=== PATIENT | female | born 1955 | race Caucasian/White ===

== ENCOUNTER 2017-08-22 21:15 | Emergency (ER) | payer MEDICAID, OTHER ==
[2017-08-22 21:20] VITALS: BP 165/97
[2017-08-22] MEDS ORDERED: Clindamycin HCl 150 MG Cap PO ONE (21:29)
[2017-08-22] MEDS ORDERED: Acetaminophen/HYDROcodone 325-10 MG Tab PO ONE (21:29)
--- NOTE | 2017-08-22 21:34 | EDM.PDOC ---
ED HPI GENERAL MEDICAL PROBLEM - General Chief Complaint: ENT Problem Stated Complaint: PAIN IN MOUTH/EAR, [id number] Time Seen by Provider: 08/22/17 21:31 Source of Information: Reports: Patient History Limitations: Reports: No Limitations - History of Present Illness INITIAL COMMENTS - FREE TEXT/NARRATIVE: onset right face-ear pain this am Right Lower Gums Pain Score (Numeric/FACES): 8 - Related Data Allergies Allergy/AdvReac Type Severity Reaction Status Date / Time No Known Allergies Allergy Verified 08/22/17 21:20 Home Meds: Home Meds Lisinopril/Hydrochlorothiazide [Lisinopril-Hctz 20-12.5 mg Tab] 1 tab PO DAILY 08/22/17 [History] Past Medical History Cardiovascular History: Reports: Hypertension - Past Surgical History GI Surgical History: Reports: Cholecystectomy Female Surgical History: Reports: Section Social & Family History - Tobacco Use Smoking Status *Q: Current Every Day Smoker Years of Tobacco use: 30 Packs/Tins Daily: 0.5 Second Hand Smoke Exposure: Yes - Recreational Drug Use Recreational Drug Use: No ED ROS ENT - Review of Systems Review Of Systems: ROS reveals no pertinent complaints other than HPI. ED EXAM, ENT - Physical Exam Exam: See Below Exam Limited By: No Limitations General Appearance: Alert, WD/WN, Mild Distress, Other (pain) Ears: Hearing Grossly Normal, Normal TMs Nose: Normal Inspection Mouth/Throat: Dental Abcess, Dental Pain, Dental Tenderness, Other (right lower molar) Head: Atraumatic Neck: Non-Tender, Full Range of Motion Respiratory/Chest: No Respiratory Distress Cardiovascular: Regular Rate, Rhythm GI/Abdominal: Soft, Non-Tender Neurological: Alert, Oriented, Normal Cognition, Normal Gait, No Motor/Sensory Deficits Psychiatric: Tearful Skin: Warm, Dry, Normal Color Lymphatic: No Adenopathy Course - Vital Signs Last Recorded V/S: Last Vital Signs Temp 36.6 C 08/22/17 21:17 Pulse 90 08/22/17 21:17 Resp 18 08/22/17 21:17 BP 165/97 H 08/22/17 21:17 Pulse Ox 98 08/22/17 21:17 - Orders/Labs/Meds Meds: Medications Discontinued Medications Generic Name Dose Route Start Last Admin Trade Name Freq PRN Reason Stop Dose Admin Hydrocodone Bitart/Acetaminophen 1 tab 08/22/17 21:29 [place] 325-10 Mg PO 08/22/17 21:30 ONETIME ONE Clindamycin HCl 300 mg 08/22/17 21:29 Cleocin PO 08/22/17 21:30 ONETIME ONE Departure - Departure Time of Disposition: 21:32 Disposition: Home, Self-Care 01 Condition: Good Clinical Impression: Dental abscess, Dental caries - Discharge Information Instructions: Dental Abscess, [id number] Additional Instructions: 1) avoid solid foods 2) see Dentist Friday rx given; clindamycin 150mg qid x 40 vicodin 5/325mg bid prn x 12
== END 2017-08-22 21:39 | disposition home or self-care (01) ==
LOC: DL.ED 21:15
DX: K04.7 Periapical abscess without sinus (principal); K02.9 Dental caries, unspecified; Z79.899 Other long term (current) drug therapy; F17.210 Nicotine dependence, cigarettes, uncomplicated
CPT/HCPCS: 99282; A9270

== ENCOUNTER 2018-12-01 05:33 | Day surgery (SDC) | payer OTHER ==
[~2018-12-01 05:33] MED LIST: Dextrose 5%-0.45% NaCl 1,000 ML IV SCH; Sodium Chloride 0.9% 10 ML Syringe FLUSH PRN
[2018-12-01] MEDS ORDERED: Midazolam 1 MG/ML 2 ML SDV IV ONE ×7 (05:34→06:40)
[2018-12-01] MEDS ORDERED: fentaNYL 100 MCG/2 ML SDV IV ONE ×3 (05:34→06:27)
[2018-12-01] MEDS ORDERED: Midazolam 1 MG/ML 2 ML SDV ONE (06:15)
[2018-12-01] MEDS ORDERED: fentaNYL 100 MCG/2 ML SDV ONE (06:16)
--- NOTE | 2018-12-01 07:26 | OR ---
DATE: 12/01/2018 PROCEDURE PERFORMED: Total colonoscopy and multiple cold snare polypectomies. INSTRUMENT USED: PCF-H180 AL Olympus video colonoscope. PREMEDICATIONS: Fentanyl 100 mcg intravenous, Versed 4 mg intravenous. Nasal O2 cannula. The procedure was done under pulse oximetry, BP recording, and radiation monitor. INDICATIONS: Screening colonoscopy examination is done for detection of any polypoid lesions and removal, endoscopic hemostasis therapy if needed. Initial rectal exam was unremarkable. Rigid anoscopy was normal. DESCRIPTION OF PROCEDURE: The colonoscope was passed with ease. Numerous scattered diverticula were noted in the distal left colon along with deformity. The scope was passed with ease up to the ileocecal area. Photographs were taken of the normal-appearing cecum, identified by double-bulged ileocecal folds. No bleeding was noted from any of the visualized areas at the commencement of the examination. There was some amount of fecal material that had to be aspirated. Orting scale +2. Multiple diminutive, benign-appearing rectal polyps were noted, cold snare polypectomy was done of the largest 1 and sent for histopathology. In the proximal descending colon, another diminutive polyp was noted. Photograph was taken. Cold snare polypectomy was done, the tissue was retrieved and sent for histopathology. No stricture. No vascular ectasia. No large or isolated ulcerations seen. No evidence of diffuse inflammatory bowel disease in the form of friability, contact bleeding, or ulcerations. Probing the proximal sides of folds and flexures, using adequate distention and clearing up the stool material, withdrawal of the scope was made, [id number] time over 6 minutes. No bleeding was noted from any of the visualized areas at the completion of examination. IMPRESSION: 1. Multiple diminutive polyps. 2. Diverticulosis. The patient tolerated the procedure well. [facility] /[id number]
[2018-12-01 09:52] VITALS: BP 110/85
== END 2018-12-01 08:54 | disposition home or self-care (01) ==
LOC: DL.ENDO 05:33
PROVIDERS: ATTEND Internal Medicine Gastroenterology
DX: Z12.11 Encounter for screening for malignant neoplasm of colon (principal); D12.4 Benign neoplasm of descending colon; K62.1 Rectal polyp; K57.30 Diverticulosis of large intestine without perforation or abscess without bleeding; I10 Essential (primary) hypertension; E66.09 Other obesity due to excess calories; F17.210 Nicotine dependence, cigarettes, uncomplicated; E78.5 Hyperlipidemia, unspecified
CPT/HCPCS: 45385; J2250; J3010; J7042

== ENCOUNTER 2018-12-04 17:56 | Emergency (ER) | payer OTHER ==
[2018-12-04] MEDS ORDERED: Sodium Chloride 0.9% 10 ML Syringe FLUSH PRN (18:12)
[2018-12-04] MEDS ORDERED: Sodium Chloride 0.9% 1,000 ML IV ONE ×2 (18:14→18:48)
[2018-12-04 18:30] VITALS: BP 99/72
--- NOTE | 2018-12-04 18:33 | CR ---
Clinical history: 63-year-old female chest pain. Interpretation: No acute new cardiopulmonary abnormality since 15 September 2012 comparison film. Normal cardiac silhouette without cephalization of vascular flow, signs of alveolar edema or dependent pleural fluid accumulation. (external monitoring and evaluation advisor leads) No new lung mass, hilar lymphadenopathy or focal lobar pneumonia. No atelectasis/collapse. No pneumothorax. CONCLUSION: Negative exam.
[2018-12-04 18:43] LABS: ANION GAP 16.4; CHLORIDE,CL 94 mmol/L (101-111); SODIUM,NA 130 mmol/L (135-145)
[2018-12-04] MEDS ORDERED: Iopamidol 755 Mg/ML 100 ML Bottle IVPUSH ONE (18:45)
--- NOTE | 2018-12-04 18:54 | CT ---
Clinical history: 63-year-old female smoker with hypertension complaining of lightheadedness and near syncopal episode. Scan technique: Volume acquisition of data emergency unenhanced CT scan of the head and brain obtained while the patient was lying supine on the Siemens multi slice scanner [place], [place]. All data archived in the PACS system for storage, reformatting axial/sagittal/coronal planes and study. No previous studies immediately available for comparison. Interpretation: Negative exam. 1. Uniformly thick bony calvarium and symmetric clear pneumatization of the paranasal/mastoid sinuses. 2. No sign of underlying brain contusion or epidural/subdural hematoma. 3. No supratentorial or posterior fossa mass lesion. Symmetric age-appropriate atrophy. Underlying mirror-image normal ventricles. 4. No focal areas of ischemia, territorial infarct or signs of encephalomalacia. 5. No sign of acute intracerebral/intraventricular/subarachnoid bleed. 6. Cerebellum and brainstem unremarkable.
--- NOTE | 2018-12-04 18:55 | EDM.PDOC ---
"Scribed by Ashlie Branham 12/04/18 2298 for Amanda Laguerre MD ED HPI GENERAL MEDICAL PROBLEM - General Source of Information: Reports: Patient, EMS, EMS Notes Reviewed, RN, RN Notes Reviewed History Limitations: Reports: No Limitations - History of Present Illness Onset: Today Duration: Minutes: Location: Reports: Generalized Severity: Severe Improves with: Reports: None Worsens with: Reports: None Associated Symptoms: Reports: No Other Symptoms <Amanda Laguerre - Last Filed: 12/04/18 18:52> <Linda Burns - Last Filed: 12/04/18 23:04> - General Chief Complaint: Syncope Stated Complaint: SYNCOPE Time Seen by Provider: 12/04/18 17:57 - History of Present Illness INITIAL COMMENTS - FREE TEXT/NARRATIVE: Patient presents to ER by [facility]. Patient was at work she became lightheaded, lowered herself to the ground and had a syncopal episode. Denies chest pain, shortness of breath, palpitations, edema, nausea, vomiting or headache. States that she has not been ill recently. No prior history of syncope. (Ashlie Branham) Patient presents to ER by [facility]. Patient was at work she became lightheaded, lowered herself to the ground and had a syncopal episode. Denies chest pain, shortness of breath, palpitations, edema, nausea, vomiting or headache. States that she has not been ill recently. No prior history of syncope. (Amanda Laguerre) - Related Data Allergies Allergy/AdvReac Type Severity Reaction Status Date / Time No Known Allergies Allergy Verified 12/04/18 18:24 Home Meds: Home Meds Lisinopril/Hydrochlorothiazide [Lisinopril-Hctz 20-12.5 mg Tab] 1 tab PO DAILY 08/22/17 [History] Aspirin [Halfprin] 81 mg PO DAILY 11/30/18 [History] Ibuprofen 200 mg PO ASDIRECTED 11/30/18 [History] atorvaSTATin [Lipitor] 20 mg PO DAILY 11/30/18 [History] Past Medical History HEENT History: Reports: Impaired Vision Other HEENT History: WEARS CORRECTIVES LENS Cardiovascular History: Reports: High Cholesterol, Hypertension Respiratory History: Reports: None Gastrointestinal History: Reports: None Genitourinary History: Reports: None 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: Musculoskeletal History: Reports: None Neurological History: Reports: None Psychiatric History: Reports: None Endocrine/Metabolic History: Reports: Obesity/BMI 30+ Hematologic History: Reports: Blood Transfusion(s) Immunologic History: Reports: None Oncologic (Cancer) History: Reports: None Dermatologic History: Reports: None - Infectious Disease History Infectious Disease History: Reports: Chicken Pox - Past Surgical History Head Surgeries/Procedures: Reports: None HEENT Surgical History: Reports: None Cardiovascular Surgical History: Reports: None Respiratory Surgical History: Reports: None GI Surgical History: Reports: Appendectomy, Cholecystectomy, Colonoscopy Female Surgical History: Reports: Section, Tubal Ligation Endocrine Surgical History: Reports: None Neurological Surgical History: Reports: None Musculoskeletal Surgical History: Reports: None Oncologic Surgical History: Reports: None Dermatological Surgical History: Reports: None <Amanda Laguerre - Last Filed: 12/04/18 18:52> Social & Family History - Caffeine Use Caffeine Use: Reports: Coffee Other Caffeine Use: 1-2 CUPS OF COFFEE DAILY <Amanda Laguerre - Last Filed: 12/04/18 18:52> ED ROS GENERAL - Review of Systems Review Of Systems: ROS reveals no pertinent complaints other than HPI. <Amanda Laguerre - Last Filed: 12/04/18 18:52> - Physical Exam Exam: See Below Exam Limited By: No Limitations General Appearance: Alert, WD/WN, No Apparent Distress Eye Exam: Bilateral Eye: EOMI, Normal Inspection, PERRL Ears: Normal External Exam, Normal Canal, Hearing Grossly Normal, Normal TMs Nose: Normal Inspection, Normal Mucosa, No Blood Throat/Mouth: Normal Inspection, Normal Lips, Normal Teeth, Normal Gums, Normal Oropharynx, Normal Voice, No Airway Compromise Head Exam: Atraumatic, Normocephalic Neck: Normal Inspection, Supple, Non-Tender, Full Range of Motion Respiratory/Chest: No Respiratory Distress, Lungs Clear, Normal Breath Sounds, No Accessory Muscle Use, Chest Non-Tender Cardiovascular: Normal Peripheral Pulses, Regular Rate, Rhythm, No Edema, No Gallop, No JVD, No Murmur, No Rub GI/Abdominal: Normal Bowel Sounds, Soft, Non-Tender, No Organomegaly, No Distention, No Abnormal Bruit, No Mass (Female) Exam: Deferred Rectal (Female) Exam: Deferred Neuro Exam (Abbreviated): Alert, Oriented, CN II-XII Intact, Normal Cognition, Normal Gait, Normal Reflexes, No Motor/Sensory Deficits Back Exam: Normal Inspection, Full Range of Motion, NT Extremities: Normal Inspection, Normal Range of Motion, Non-Tender, No Pedal Edema, Normal Capillary Refill Psychiatric: Normal Affect, Normal Mood Skin Exam: Warm, Dry, Intact, Normal Color, No Rash <Amanda Laguerre - Last Filed: 12/04/18 18:52> EKG INTERPRETATION EKG Date: 12/04/18 Time: 18:02 Rhythm: Other (sinus rhythm) Rate (Beats/Min): 83 [place]: Normal P-Wave: Present QRS: Normal ST-T: Normal QT: Normal <Amanda Laguerre - Last Filed: 12/04/18 18:52> Course <Amanda Laguerre - Last Filed: 12/04/18 18:52> <Linda Burns - Last Filed: 12/04/18 23:04> - Vital Signs Last Recorded V/S: Last Vital Signs Temp 98.1 F 12/04/18 18:27 Pulse 103 H 12/04/18 18:27 Resp 12 12/04/18 18:27 BP 99/72 12/04/18 18:27 Pulse Ox 100 12/04/18 18:27 Orthostatic Blood Pressure [ 115/71 Supine] Orthostatic Blood Pressure [ 119/80 Standing] Orthostatic Blood Pressure [ 128/79 Sitting] - Orders/Labs/Meds Orders: Active Orders 24 hr Category Date Time Status Blood Glucose Check, Bedside [RC] ONETIME Care 12/04/18 18:13 Active EKG 12 Lead [EKG Documentation Completion] [RC] STAT Care 12/04/18 18:13 Active Orthostatic Vital Signs [RC] ASDIRECTED Care 12/04/18 18:14 Active Peripheral IV Care [RC] . DIRECTED Care 12/04/18 18:14 Active CULTURE URINE [RM] Stat Lab 12/04/18 20:16 Received Peripheral IV Insertion Adult [OM.PC] Stat Oth 12/04/18 18:13 Ordered Labs: Laboratory Tests 12/04/18 12/04/18 12/04/18 Range/Units 18:15 18:15 18:15 WBC 10.0 (5.0-10.0) 10^3/uL RBC 4.19 L (4.2-5.4) 10^6/uL Hgb 12.8 (12.0-16.0) g/dL Hct 37.0 (37.0-47.0) % MCV 88.3 (80-100) fL MCH 30.5 (27.0-34.0) pg MCHC 34.6 (33.0-35.0) g/dL Plt Count 264 (150-450) 10^3/uL Neut % (Auto) 75.0 (42.2-75.2) % Lymph % (Auto) 16.9 L (20.5-50.1) % [place] % (Auto) 7.4 (2-8) % Eos % (Auto) 0.4 L (1.0-3.0) % Baso % (Auto) 0.3 (0.0-1.0) % D-Dimer, Quantitative 4430 H (0-400) ng/mL Sodium 130 L (135-145) mmol/L Potassium 4.4 (3.6-5.0) mmol/L Chloride 94 L (101-111) mmol/L Carbon Dioxide 24.0 (21.0-31.0) mmol/L Anion Gap 16.4 BUN 25 H (7-18) mg/dL Creatinine 1.3 (0.6-1.3) mg/dL Est Cr Clr Drug Dosing TNP Estimated GFR (MDRD) 42 BUN/Creatinine Ratio 19.23 Glucose 158 H (74-105) mg/dL POC Glucose (70-105) mg/dl Calcium 9.8 (8.4-10.2) mg/dl Total Bilirubin 0.8 (0.2-1.0) mg/dL AST 23 (10-42) IU/L ALT 26 (10-60) IU/L Alkaline Phosphatase 65 (42-121) IU/L Creatine Kinase (26-174) IU/L Creatine Kinase Index (0-2.4) % CK-MB (CK-2) (0.4-4.7) ng/mL Troponin I < 0.02 (0.00-0.02) ng/ml Total Protein 7.7 (6.7-8.2) g/dl Albumin 4.5 (3.2-5.5) g/dl Globulin 3.2 Albumin/Globulin Ratio 1.41 Urine Color (YELLOW) Urine Appearance (CLEAR) Urine pH (5.0-9.0) Ur Specific [place] (1.005-1.030) Urine Protein (NEGATIVE) Urine Glucose (UA) (NEGATIVE) Urine Ketones (NEGATIVE) Urine Occult Blood (NEGATIVE) Urine Nitrite (NEGATIVE) Urine Bilirubin (NEGATIVE) Urine Urobilinogen (0.2-1.0) mg/dL Ur Leukocyte Esterase (NEGATIVE) Urine RBC /HPF Urine WBC (0-5/HPF) /HPF Ur Epithelial Cells /HPF Urine Bacteria (0-FEW/HPF) /HPF Hyaline Casts /LPF Urine Yeast (0/HPF) /HPF 12/04/18 12/04/18 12/04/18 Range/Units 18:15 19:15 20:16 WBC (5.0-10.0) 10^3/uL RBC (4.2-5.4) 10^6/uL Hgb (12.0-16.0) g/dL Hct (37.0-47.0) % MCV (80-100) fL MCH (27.0-34.0) pg MCHC (33.0-35.0) g/dL Plt Count (150-450) 10^3/uL Neut % (Auto) (42.2-75.2) % Lymph % (Auto) (20.5-50.1) % [place] % (Auto) (2-8) % Eos % (Auto) (1.0-3.0) % Baso % (Auto) (0.0-1.0) % D-Dimer, Quantitative (0-400) ng/mL Sodium (135-145) mmol/L Potassium (3.6-5.0) mmol/L Chloride (101-111) mmol/L Carbon Dioxide (21.0-31.0) mmol/L Anion Gap BUN (7-18) mg/dL Creatinine (0.6-1.3) mg/dL Est Cr Clr Drug Dosing Estimated GFR (MDRD) BUN/Creatinine Ratio Glucose (74-105) mg/dL POC Glucose 104 (70-105) mg/dl Calcium (8.4-10.2) mg/dl Total Bilirubin (0.2-1.0) mg/dL AST (10-42) IU/L ALT (10-60) IU/L Alkaline Phosphatase (42-121) IU/L Creatine Kinase 49 (26-174) IU/L Creatine Kinase Index 2.0 (0-2.4) % CK-MB (CK-2) 1.00 (0.4-4.7) ng/mL Troponin I (0.00-0.02) ng/ml Total Protein (6.7-8.2) g/dl Albumin (3.2-5.5) g/dl Globulin Albumin/Globulin Ratio Urine Color Yellow (YELLOW) Urine Appearance Slightly cloudy (CLEAR) Urine pH 5.5 (5.0-9.0) Ur Specific [place] <= 1.005 (1.005-1.030) Urine Protein Negative (NEGATIVE) Urine Glucose (UA) Negative (NEGATIVE) Urine Ketones Negative (NEGATIVE) Urine Occult Blood Trace-intact H (NEGATIVE) Urine Nitrite Negative (NEGATIVE) Urine Bilirubin Negative (NEGATIVE) Urine Urobilinogen 0.2 (0.2-1.0) mg/dL Ur Leukocyte Esterase Small H (NEGATIVE) Urine RBC 0-5 /HPF Urine WBC 10-20 H (0-5/HPF) /HPF Ur Epithelial Cells Moderate H /HPF Urine Bacteria Moderate H (0-FEW/HPF) /HPF Hyaline Casts Moderate H /LPF Urine Yeast Few H (0/HPF) /HPF Meds: Medications Discontinued Medications Generic Name Dose Route Start Last Admin Trade Name Freq PRN Reason Stop Dose Admin Ciprofloxacin 500 mg 12/04/18 20:33 12/04/18 20:40 Ciprofloxacin Hcl PO 12/04/18 20:34 500 mg ONETIME ONE Administration Sodium Chloride 1,000 mls @ 999 mls/hr 12/04/18 18:14 12/04/18 18:52 Normal Saline IV 12/04/18 19:14 999 mls/hr .BOLUS ONE Administration Sodium Chloride 1,000 mls @ 999 mls/hr 12/04/18 18:48 12/04/18 19:38 Normal Saline IV 12/04/18 19:48 999 mls/hr .BOLUS ONE Administration Iopamidol 100 ml 12/04/18 18:45 12/04/18 19:13 [id number] (76%) IVPUSH 01/11/19 18:46 100 ml ONETIME ONE Administration Sodium Chloride 10 ml 12/04/18 18:12 12/04/18 20:00 Saline Flush FLUSH 10 ml ASDIRECTED PRN Administration Keep Vein Open - Radiology Interpretation Free Text/Narrative:: Chest x-ray: Normal See rad report. (Ashlie Branham) Chest x-ray: Normal See rad report. (Amanda Laguerre) e [place] - [facility] Final Radiology Report Call: [phone] assistance Online chat: [email or web address] Name: KIKA LIU Age: 63Years F Date: 12/04/2018 SSN: -- : 1955 Study: CT CHEST W Requesting Physician: AMANDA LAGUERRE Images: [id number] Addl Studies: Provided Clinical History: Contrast: With Contrast Medium: [id number] Contrast Amount: 74 mL Contrast Method: rac Page 1 of 2 EXAM: CT Chest With Contrast EXAM DATE/TIME: 12/04/2018 7:28 PM CLINICAL HISTORY: 63 years old, female; Signs and symptoms; Other: Pe study--ddimer 4430, syncope TECHNIQUE: Axial computed tomography images of the chest with intravenous contrast. All CT scans at this facility use at least one of these dose optimization techniques: automated exposure control; mA and/or kV adjustment per patient size (includes targeted exams where dose is matched to clinical indication); or iterative reconstruction. Coronal and sagittal reformatted images were created and reviewed. CONTRAST: 74 ml of [id number] administered intravenously. COMPARISON: CT Chest wo Cont 03/28/2015 10:59 AM FINDINGS: Lungs: The lungs are hyperinflated, consistent with underlying small airways disease. Pleural space: Normal. No pneumothorax. No pleural effusion. Heart: Normal. No cardiomegaly. No pericardial effusion. Pulmonary arteries: No evidence of pulmonary embolism. Aorta: The vasculature demonstrates diffuse mild atherosclerotic calcification. Lymph nodes: Unremarkable. No enlarged lymph nodes. Bones/joints: The thoracic spine demonstrates mild degenerative changes at multiple levels. KIKA LIU | Final Radiology Report CONFIDENTIALITY STATEMENT This report is intended only for use by the referring physician, and only in accordance with law. If you received this in error, call [phone]. Page 2 of 2 Soft tissues: Unremarkable. IMPRESSION: 1. No evidence of pulmonary embolism. 2. The lungs are hyperinflated, consistent with underlying small airways disease. Atelectatic changes noted within the lung bases, greater on the left. Thank you for allowing us to participate in the care of your patient. Dictated and Authenticated by: Aldo Philip DO 12/04/2018 8:17 PM Central Time ([place] & [place]) Head CT without contrast unremarkabnle: See Rad report (Linda Burns) - Re-Assessments/Exams Free Text/Narrative Re-Assessment/Exam: 12/04/18 19:00 Care of pt transferred to Linda ESTRADA at shift change with PE study pending. (Amanda Laguerre) Free Text/Narrative Re-Assessment/Exam: 12/04/18 [address] Laguerre. Awaiting CT chest and results. Patient resting visiting with family. No acute respiratory difficulty. Patient reports has not eaten today. [address] results reviewed with patient. Has been up to BR, gait steady and denied any dizziness, recheck of orthostatic BP, improved. instructed to return if any worsening or symptoms or difficutly breathing. (Linda Burns) Departure <Amanda Laguerre - Last Filed: 12/04/18 18:52> - Departure Time of Disposition: 20:31 Condition: Good - Discharge Information *PRESCRIPTION DRUG MONITORING PROGRAM REVIEWED*: No <Linda Burns - Last Filed: 12/04/18 23:04> - Departure Disposition: Home, Self-Care 01 Clinical Impression: Syncope Qualifiers: Syncope type: unspecified Qualified Code(s): R55 - Syncope and collapse UTI (urinary tract infection) Qualifiers: Urinary tract infection type: acute cystitis Hematuria presence: with hematuria Qualified Code(s): N30.01 - Acute cystitis with hematuria - Discharge Information Instructions: Urinary Tract Infection, Adult, Syncope, [id number] Referrals: PCP,None [Primary Care Provider] - Forms: ED Department Discharge Additional Instructions: cipro 500mg one twice daily for 5 days increase fluid intake change positions slowly light activity clinic follow up nest week I have read and agree with the documentation that has been completed regarding this visit. By signing this record, I attest that the documentation was completed in my physical presence and is an accurate record of the encounter."
[2018-12-04] MEDS ORDERED: Ciprofloxacin 500 MG Tab PO ONE (20:33)
== END 2018-12-04 20:48 | disposition home or self-care (01) ==
LOC: DL.ED 17:56
DX: R55 Syncope and collapse (principal); N30.01 Acute cystitis with hematuria; E78.00 Pure hypercholesterolemia, unspecified; I10 Essential (primary) hypertension; Z79.899 Other long term (current) drug therapy
CPT/HCPCS: 36415; 70450; 71045; 71260; 80053; 81001; 82550; 82553; 82962; 84484; 85025; 85379; 87086; 93005; 96360; 99285; A9270-GY; J7030; Q9967

== ENCOUNTER 2022-02-14 18:08 | Emergency (ER) | payer MEDICAID, OTHER ==
[2022-02-14] MEDS ORDERED: Clindamycin HCl 150 MG Cap PO ONE (18:09)
[2022-02-14] MEDS ORDERED: Clindamycin HCl 150 MG Cap ONE (19:24)
[2022-02-14 19:35] VITALS: BP 124/90; PULSE 118
== END 2022-02-14 19:31 | disposition home or self-care (01) ==
LOC: DL.ED 18:08
DX: K04.7 Periapical abscess without sinus (principal); K02.9 Dental caries, unspecified; E78.00 Pure hypercholesterolemia, unspecified; I10 Essential (primary) hypertension; E66.9 Obesity, unspecified; Z68.25 Body mass index [BMI] 25.0-25.9, adult; Z79.899 Other long term (current) drug therapy; Z79.82 Long term (current) use of aspirin; Z72.0 Tobacco use
CPT/HCPCS: 99282; 99283; A9270-GY

== ENCOUNTER 2022-07-21 16:04 | Emergency (ER) | payer MEDICARE, MEDICAID ==
[2022-07-21] MEDS ORDERED: Cyclobenzaprine 10 MG Tab PO ONE (16:05)
[2022-07-21] MEDS ORDERED: Ketorolac 10 MG Tab PO ONE (16:05)
[2022-07-21] MEDS ORDERED: Ketorolac 30 MG/ML SDV IM ONE (16:53)
[2022-07-21] MEDS ORDERED: Orphenadrine 60 MG/2 ML Inj IM ONE (16:53)
[2022-07-21 18:14] VITALS: BP 145/94; PULSE 97
[2022-07-21] MEDS ORDERED: Ketorolac 10 MG Tab ONE (18:47)
[2022-07-21] MEDS ORDERED: Cyclobenzaprine 10 MG Tab ONE (18:48)
== END 2022-07-21 18:57 | disposition home or self-care (01) ==
LOC: DL.ED 16:04
DX: M48.061 Spinal stenosis, lumbar region without neurogenic claudication (principal); M54.42 Lumbago with sciatica, left side; E78.00 Pure hypercholesterolemia, unspecified; I10 Essential (primary) hypertension; F17.210 Nicotine dependence, cigarettes, uncomplicated; E66.9 Obesity, unspecified; Z68.24 Body mass index [BMI] 24.0-24.9, adult; Z79.899 Other long term (current) drug therapy; Z79.82 Long term (current) use of aspirin; Z90.49 Acquired absence of other specified parts of digestive tract
CPT/HCPCS: 72100; 81001; 87086; 96372; 99283; A9270; J1885; J2360

== ENCOUNTER 2022-08-21 19:18 | Emergency (ER) | payer MEDICARE, MEDICAID ==
[2022-08-21] MEDS ORDERED: Acetaminophen/HYDROcodone 325-5 MG Tab PO ONE (19:19)
[2022-08-21] MEDS ORDERED: Clindamycin HCl 150 MG Cap PO ONE (19:19)
[2022-08-21 19:50] VITALS: BP 148/86; PULSE 85
[2022-08-21] MEDS ORDERED: Clindamycin HCl 150 MG Cap ONE (21:49)
[2022-08-21] MEDS ORDERED: Acetaminophen/HYDROcodone 325-5 MG Tab ONE (21:49)
== END 2022-08-21 22:00 | disposition home or self-care (01) ==
LOC: DL.ED 19:18
DX: K04.7 Periapical abscess without sinus (principal); F17.210 Nicotine dependence, cigarettes, uncomplicated; E78.00 Pure hypercholesterolemia, unspecified; I10 Essential (primary) hypertension; E66.9 Obesity, unspecified; Z68.24 Body mass index [BMI] 24.0-24.9, adult; Z79.899 Other long term (current) drug therapy
CPT/HCPCS: 99282; 99283; A9270-GY

== ENCOUNTER 2022-10-25 01:20 | Emergency (ER) | payer MEDICARE, MEDICAID ==
[2022-10-25] MEDS ORDERED: Albuterol/Ipratropium 3.0-0.5 MG/3 ML Neb Soln NEB ONE (01:24)
[2022-10-25] MEDS ORDERED: Sodium Chloride 0.9% 10 ML Syringe FLUSH PRN (01:25)
[2022-10-25] MEDS ORDERED: methylPREDNISolone Sodium Succinate 125 MG/2 ML SDV IVPUSH ONE (01:25)
[2022-10-25] MEDS ORDERED: Magnesium Sulfate/Water 2 GM in Premix Bag 1 BAG IV ONE (01:26)
[2022-10-25 02:01] LABS: ANION GAP 13.6 mEq/L (7-13); CHLORIDE,CL 99 mmol/L (98-107); SODIUM,NA 137 mmol/L (136-145)
[2022-10-25 02:12] LABS: ESTIMATED GFR 97 mL/min (>=60)
[2022-10-25 02:27] VITALS: BP 132/87; PULSE 86
[2022-10-25 02:28] LABS: CORONAVIRUS COVID-19 NAA NEGATIVE (NEGATIVE)
[2022-10-25] MEDS ORDERED: Azithromycin 250 MG Tab PO ONE (02:49)
[2022-11-01] MEDS ORDERED: Albuterol 6.7 GM Inhaler INH ONE (15:05)
== END 2022-10-25 03:00 | disposition home or self-care (01) ==
LOC: EDBD → MERGE 01:20 → DL.ED 01:20
DX: J44.9 Chronic obstructive pulmonary disease, unspecified (principal); I10 Essential (primary) hypertension; Z20.822 Contact with and (suspected) exposure to COVID-19
CPT/HCPCS: 0240U; 36415; 80053; 83880; 85025; 86140; 93005; 93010; 94640; 96365; 96375; 99284; 99285; A9270; J2930; J3475; J3490; J7620-GY

== ENCOUNTER 2022-12-05 18:49 | Emergency (ER) | payer MEDICARE, MEDICAID ==
[2022-12-05] MEDS ORDERED: Albuterol/Ipratropium 3.0-0.5 MG/3 ML Neb Soln INH ONE (18:50)
[2022-12-05] MEDS ORDERED: Benzonatate 100 MG Cap PO ONE (18:50)
[2022-12-05] MEDS ORDERED: methylPREDNISolone Sodium Succinate 125 MG/2 ML SDV IVPUSH ONE (19:23)
[2022-12-05] MEDS ORDERED: Albuterol/Ipratropium 3.0-0.5 MG/3 ML Neb Soln NEB ONE (19:23)
[2022-12-05 19:26] VITALS: BP 152/86; PULSE 110
[2022-12-05 20:14] LABS: CORONAVIRUS COVID-19 NAA NEGATIVE (NEGATIVE); RESPIRATORY SYNCYTIAL VIR NAA NEGATIVE (NEGATIVE)
[2022-12-05] MEDS ORDERED: Azithromycin 250 MG Tab PO ONE (20:21)
[2022-12-05] MEDS ORDERED: Benzonatate 100 MG Cap ONE (20:31)
[2022-12-05] MEDS ORDERED: Albuterol/Ipratropium 3.0-0.5 MG/3 ML Neb Soln ONE (20:31)
== END 2022-12-05 20:47 | disposition home or self-care (01) ==
LOC: DL.ED 18:49
DX: J44.1 Chronic obstructive pulmonary disease with (acute) exacerbation (principal); E78.00 Pure hypercholesterolemia, unspecified; I10 Essential (primary) hypertension; E66.9 Obesity, unspecified; Z68.30 Body mass index [BMI] 30.0-30.9, adult; Z79.899 Other long term (current) drug therapy; Z20.822 Contact with and (suspected) exposure to COVID-19
CPT/HCPCS: 0241U; 71045; 96374; 99285-25; A9270-GY; J2930; J7620-GY

== ENCOUNTER 2023-05-21 14:08 | Emergency (ER) | payer MEDICARE, MEDICAID ==
[~2023-05-21 14:08] MED LIST changes: -Dextrose 5%-0.45% NaCl 1,000 ML IV SCH; +Sodium Chloride 0.9% 1,000 ML IV ONE; -Sodium Chloride 0.9% 10 ML Syringe FLUSH PRN
[2023-05-21 14:19] LABS: BASOPHILS PERCENT AUTO 0.2 % (0.0-1.0); EOSINOPHILS PERCENT AUTO 0.1 % (1.0-3.0); LYMPHOCYTES PERCENT AUTO 5.7 % (20.5-50.1); MEAN CORPUSCULAR HGB CONC 34.1 g/dL (33.0-35.0); MEAN CORPUSCULAR VOLUME 93.6 fL (80-100); MONOCYTES PERCENT AUTO 1.9 % (2-8); NEUTROPHILS PERCENT AUTO 92.1 % (42.2-75.2); PLATELET COUNT,PLT 234 10^3/uL (150-450); RED BLOOD CELL COUNT 4.38 10^6/uL (4.2-5.4)
[2023-05-21 14:33] LABS: INR 0.9 (0.9-1.2); PROTHROMBIN TIME 9.5 SEC (9.0-12.0)
[2023-05-21 16:06] VITALS: BP 124/68; PULSE 83
== END 2023-05-21 15:18 | disposition home or self-care (01) ==
LOC: DL.ED 14:08
DX: K91.840 Postprocedural hemorrhage of a digestive system organ or structure following a digestive system procedure (principal); R42 Dizziness and giddiness; K08.409 Partial loss of teeth, unspecified cause, unspecified class; I10 Essential (primary) hypertension; J44.9 Chronic obstructive pulmonary disease, unspecified; E78.00 Pure hypercholesterolemia, unspecified; E66.9 Obesity, unspecified; Z68.22 Body mass index [BMI] 22.0-22.9, adult; Z79.899 Other long term (current) drug therapy
CPT/HCPCS: 36415; 85025; 85610; 96360; 99284; J7030

== ENCOUNTER 2024-04-26 10:32 | Inpatient (IN) | payer MEDICARE ==
[2024-04-26] MEDS: Magnesium Sulfate/Water 2 GM in Premix Bag 1 BAG IV ONE ×2 (10:45→11:46)
[2024-04-26] MEDS ORDERED: Sodium Chloride 0.9% 10 ML Syringe FLUSH PRN (10:45)
[2024-04-26] MEDS: Albuterol/Ipratropium 3.0-0.5 MG/3 ML Neb Soln NEB ONE (10:46)
[2024-04-26 10:47] LABS: O2 DELIVERY DEVICE NASAL CANNULA
[2024-04-26] MEDS: Albuterol/Ipratropium 3.0-0.5 MG/3 ML Neb Soln ONE (10:47)
[2024-04-26 10:48] LABS: BASE EXCESS VENOUS 0.8 mmol/l ((-2)-(+3)); BICARBONATE,VENOUS 26 mmol/l (19-25); O2 SATURATION VENOUS 34.2 % (60-80); PCO2 VENOUS 46 mmHg (41-51); PH,VENOUS 7.37 (7.31-7.41); PO2 VENOUS 28 mmHg (35-42)
[2024-04-26 11:00] LABS: BASOPHILS PERCENT AUTO 0.3 % (0.0-1.0); EOSINOPHILS PERCENT AUTO 1.9 % (1.0-3.0); HEMATOCRIT 40.4 % (37.0-47.0); MEAN CORPUSCULAR HEMOGLOBIN 32.8 pg (27.0-34.0); MEAN CORPUSCULAR HGB CONC 34.7 g/dL (33.0-35.0); MEAN CORPUSCULAR VOLUME 94.6 fL (80-100); MONOCYTES PERCENT AUTO 5.8 % (2-8); PLATELET COUNT,PLT 357 10^3/uL (150-450); RED BLOOD CELL COUNT 4.27 10^6/uL (4.2-5.4); WHITE BLOOD CELL COUNT,WBC 13.7 10^3/uL (5.0-10.0)
[2024-04-26 11:09] LABS: A/G RATIO 1.1; ALANINE AMINOTRANSFERASE,ALT 23 U/L (14-59); ALBUMIN 4.3 g/dL (3.4-5.0); ALKALINE PHOSPHATASE 94 U/L (46-116); ANION GAP 14.5 mEq/L (7-13); ASPARTATE AMNIOTRANSFERASE,AST 19 U/L (15-37); BILIRUBIN TOTAL 0.8 mg/dL (0.2-1.0); BLOOD UREA NITROGEN,BUN 14 mg/dL (7-18); BUN/CREATININE RATIO 12.7 (No establ ref range); CALCIUM 10.3 mg/dL (8.5-10.1); CARBON DIOXIDE,CO2 27 mmol/L (21-32); CHLORIDE,CL 96 mmol/L (98-107); EST CRCL DRUG DOSING (CG) 44.67 mL/min; GLUCOSE RANDOM 100 mg/dL (70-99); MAGNESIUM 1.5 mg/dL (1.8-2.4); POTASSIUM,K 4.5 mmol/L (3.5-5.1); PROTEIN TOTAL,TP 8.1 g/dL (6.4-8.2); SODIUM,NA 133 mmol/L (136-145)
[2024-04-26 11:10] LABS: ESTIMATED GFR 55 mL/min (>=60)
[2024-04-26 11:12] LABS: LACTIC ACID 1.6 mmol/L (0.4-2.0)
[2024-04-26 11:20] LABS: B-TYPE NATRIURETIC PEPTIDE,BNP 61 pg/ml (0-100)
[2024-04-26] MEDS: methylPREDNISolone Sodium Succinate 125 MG/2 ML SDV IVPUSH ONE (11:46)
[2024-04-26] MEDS: Levofloxacin/Dextrose 5%-Water 500 MG in Premix Bag 1 BAG IV ONE (11:50)
[2024-04-26] MEDS: Magnesium Sulfate/Water 100 ML ONE (12:01)
[2024-04-26] MEDS: Albuterol 0.083% 2.5 MG/3 ML Neb Soln ONE (12:02)
[2024-04-26] MEDS ORDERED: HYDROmorphone 0.5 MG/0.5 ML Syringe IVPUSH PRN (12:30)
[2024-04-26] MEDS ORDERED: Naloxone 2 MG/2 ML Syringe IVPUSH PRN (12:30)
[2024-04-26] MEDS ORDERED: Polyethylene Glycol 3350 Powder 17 GM Packet PO PRN (12:30)
[2024-04-26] MEDS ORDERED: Zolpidem 5 MG Tab PO PRN (12:30)
[2024-04-26] MEDS ORDERED: Magnesium Hydroxide 400 MG/5 ML Susp 30 ML Cup PO PRN (12:30)
[2024-04-26] MEDS ORDERED: Sennosides/Docusate Sodium 50-8.6 MG Tab PO PRN (12:30)
[2024-04-26] MEDS ORDERED: hydrALAZINE 20 MG/ML SDV IVPUSH PRN (12:53)
[2024-04-26] MEDS ORDERED: Metoprolol Tartrate 5 MG/5 ML SDV IVPUSH PRN (12:53)
[2024-04-26] MEDS ORDERED: 50% Dextrose in Water 50 ML Syringe IVPUSH PRN (12:54)
[2024-04-26] MEDS ORDERED: Glucagon,Human Recombinant 1 MG Vial IM PRN (12:54)
[2024-04-26] MEDS: Sodium Chloride 0.9% 1,000 ML IV SCH (13:34)
[2024-04-26] MEDS: Aminophylline 500 MG in Sodium Chloride 0.9% 500 ML IV SCH (13:35)
[2024-04-26] MEDS: Azithromycin 500 MG in Sodium Chloride 0.9% 250 ML IV ONE (13:38)
[2024-04-26] MEDS: Albuterol/Ipratropium 3.0-0.5 MG/3 ML Neb Soln NEB SCH (13:42)
[2024-04-26] MEDS: Acetaminophen 325 MG Tab PO PRN (15:38)
[2024-04-26] MEDS: Magnesium Oxide 400 MG Tab PO SCH (17:00)
[2024-04-26] MEDS: Formoterol/Mometasone 200-5 MCG 8.8 GM Inhaler INH SCH (17:01)
[2024-04-26] MEDS: Insulin Lispro 100 Units/ML 3 ML Vial SUBCUT SCH (17:04)
[2024-04-26] MEDS: methylPREDNISolone Sodium Succinate 125 MG/2 ML SDV IVPUSH SCH (17:04)
[2024-04-26] MEDS ORDERED: traZODone 50 MG Tab PO PRN (19:00)
[2024-04-26] MEDS: Benzonatate 100 MG Cap PO SCH (19:40)
[2024-04-26] MEDS ORDERED: ALPRAZolam 0.5 MG Tab PO PRN (20:04)
[2024-04-26] MEDS: Morphine 2 MG/ML SYRINGE IVPUSH PRN (20:19)
[2024-04-26] MEDS: guaiFENesin 600 MG Tab.ER PO SCH (20:19)
[2024-04-26] MEDS: Ondansetron 4 MG/2 ML SDV IVPUSH PRN (20:28)
[2024-04-27] MEDS: Tiotropium Bromide 4 GM Inhalation Spray (2.5mcg/1 dose; 10 doses) INH SCH (05:10)
[2024-04-27 06:33] LABS: HEMATOCRIT 33.1 % (37.0-47.0); HEMOGLOBIN 11.7 g/dL (12.0-16.0); LYMPHOCYTES PERCENT AUTO 8.5 % (20.5-50.1); MEAN CORPUSCULAR HGB CONC 35.3 g/dL (33.0-35.0); MEAN CORPUSCULAR VOLUME 93.2 fL (80-100); MONOCYTES PERCENT AUTO 1.6 % (2-8); NEUTROPHILS PERCENT AUTO 89.9 % (42.2-75.2); PLATELET COUNT,PLT 309 10^3/uL (150-450); RED BLOOD CELL COUNT 3.55 10^6/uL (4.2-5.4); WHITE BLOOD CELL COUNT,WBC 8.5 10^3/uL (5.0-10.0)
[2024-04-27 07:20] LABS: ALBUMIN 3.5 g/dL (3.4-5.0); ANION GAP 16.8 mEq/L (7-13); BILIRUBIN TOTAL 0.5 mg/dL (0.2-1.0); BUN/CREATININE RATIO 18.3 (No establ ref range); CALCIUM 9.1 mg/dL (8.5-10.1); CREATININE 0.71 mg/dL (0.55-1.02); EST CRCL DRUG DOSING (CG) 69.37 mL/min; MAGNESIUM 1.9 mg/dL (1.8-2.4); POTASSIUM,K 3.8 mmol/L (3.5-5.1); PROTEIN TOTAL,TP 6.9 g/dL (6.4-8.2)
[2024-04-27] MEDS: Loratadine 10 MG Tab PO SCH (08:21)
[2024-04-27] MEDS: Famotidine 20 MG Tab PO SCH (08:21)
[2024-04-27] MEDS: Azithromycin 500 MG in Sodium Chloride 0.9% 250 ML IV SCH (08:22)
[2024-04-27] MEDS: Theophylline 300 MG Tab.ER PO SCH (10:08)
[2024-04-27] MEDS: buPROPion 150 MG Tab.SR PO ONE (11:01)
[2024-04-27] MEDS: buPROPion 150 MG Tab.SR PO SCH (20:43)
[2024-04-27] MEDS: Acetaminophen/oxyCODONE 325-5 MG Tab PO PRN (21:08)
[2024-04-28 06:58] LABS: HEMOGLOBIN 11.7 g/dL (12.0-16.0); LYMPHOCYTES PERCENT AUTO 5.4 % (20.5-50.1); MEAN CORPUSCULAR HEMOGLOBIN 32.2 pg (27.0-34.0); MEAN CORPUSCULAR HGB CONC 34.4 g/dL (33.0-35.0); MEAN CORPUSCULAR VOLUME 93.7 fL (80-100); MONOCYTES PERCENT AUTO 2.1 % (2-8); NEUTROPHILS PERCENT AUTO 92.5 % (42.2-75.2); PLATELET COUNT,PLT 342 10^3/uL (150-450); RED BLOOD CELL COUNT 3.63 10^6/uL (4.2-5.4); WHITE BLOOD CELL COUNT,WBC 11.7 10^3/uL (5.0-10.0)
[2024-04-28 07:21] LABS: A/G RATIO 1.1; ALANINE AMINOTRANSFERASE,ALT 20 U/L (14-59); ALBUMIN 3.6 g/dL (3.4-5.0); ALKALINE PHOSPHATASE 68 U/L (46-116); ANION GAP 13.5 mEq/L (7-13); ASPARTATE AMNIOTRANSFERASE,AST 19 U/L (15-37); BILIRUBIN TOTAL 0.4 mg/dL (0.2-1.0); BLOOD UREA NITROGEN,BUN 11 mg/dL (7-18); BUN/CREATININE RATIO 14.9 (No establ ref range); CALCIUM 9.3 mg/dL (8.5-10.1); CARBON DIOXIDE,CO2 25 mmol/L (21-32); CHLORIDE,CL 99 mmol/L (98-107); CREATININE 0.74 mg/dL (0.55-1.02); EST CRCL DRUG DOSING (CG) 66.56 mL/min; GLUCOSE RANDOM 130 mg/dL (70-99); MAGNESIUM 1.9 mg/dL (1.8-2.4); POTASSIUM,K 3.5 mmol/L (3.5-5.1); PROTEIN TOTAL,TP 6.9 g/dL (6.4-8.2); SODIUM,NA 134 mmol/L (136-145)
[2024-04-28 07:45] LABS: C-REACTIVE PROTEIN < 0.50 ng/dL (<=0.50); ESTIMATED GFR 89 mL/min (>=60)
[2024-04-28] MEDS: Lisinopril 10 MG Tab PO SCH (08:05)
[2024-04-28] MEDS: Hydrochlorothiazide 25 MG Tab PO SCH (08:06)
[2024-04-28] MEDS: Hydrochlorothiazide/Triamterene 25-37.5 Tab PO SCH (08:07)
[2024-04-28] MEDS ORDERED: Non-Formulary Medication 1 Each (Lisinopril/Hydrochlorothiazide [Lisinopril-Hctz 20-12.5 M PO SCH (09:00)
[2024-04-28] MEDS ORDERED: Hydrochlorothiazide/Triamterene 25-37.5 Tab PO SCH (09:00)
[2024-04-28 11:10] VITALS: BP 125/68; PULSE 88
== END 2024-04-28 11:10 | disposition home or self-care (01) | DRG 189 ==
LOC: DL.ED 10:32 → DL.MS 12:04
PROVIDERS: ADMIT Internal Medicine; ATTEND Internal Medicine
PROC: 5A0935A Assistance with Respiratory Ventilation, Less than 24 Consecutive Hours, High Flow/Velocity Cannula (ICD-10-PCS; principal; 2024-04-26)
DX: J96.21 Acute and chronic respiratory failure with hypoxia (principal); J44.1 Chronic obstructive pulmonary disease with (acute) exacerbation; R65.10 Systemic inflammatory response syndrome (SIRS) of non-infectious origin without acute organ dysfunction; N17.9 Acute kidney failure, unspecified; E87.1 Hypo-osmolality and hyponatremia; F17.210 Nicotine dependence, cigarettes, uncomplicated; E78.00 Pure hypercholesterolemia, unspecified; I10 Essential (primary) hypertension; H54.7 Unspecified visual loss; M54.9 Dorsalgia, unspecified; G89.29 Other chronic pain; M19.90 Unspecified osteoarthritis, unspecified site; M81.0 Age-related osteoporosis without current pathological fracture; E66.9 Obesity, unspecified; J98.4 Other disorders of lung; E83.42 Hypomagnesemia; R73.9 Hyperglycemia, unspecified; E87.8 Other disorders of electrolyte and fluid balance, not elsewhere classified; D72.829 Elevated white blood cell count, unspecified; Z79.899 Other long term (current) drug therapy; Z68.20 Body mass index [BMI] 20.0-20.9, adult; Z90.49 Acquired absence of other specified parts of digestive tract; Z98.51 Tubal ligation status; Z98.890 Other specified postprocedural states; Z87.19 Personal history of other diseases of the digestive system
CPT/HCPCS: 36415; 71045; 80053; 82803; 83605; 83735; 83880; 84145; 84484; 85025; 87040 ×2; 87804 ×2; 93005; 96365; 96375; 99285; J1956; J2919; J3475 ×2; U0002; 80198; 82947; 86140; 93010; 94640; A9270-GY; J0280; J0456; J1815-GY; J2270; J2405; J7030; J7040; J7050; J7620-GY

== ENCOUNTER 2024-10-17 15:58 | Emergency (ER) | payer MEDICARE ==
[2024-10-17] MEDS: Magnesium Sulfate/Water Premix 2 GM in Premix Bag 1 BAG IV ONE ×2 (16:15→16:39)
[2024-10-17] MEDS: Albuterol/Ipratropium 3.0-0.5 MG/3 ML Neb Soln NEB ONE (16:15)
[2024-10-17] MEDS: Dexamethasone 4 MG/ML SDV IVPUSH ONE (16:15)
[2024-10-17 16:17] VITALS: BP 156/95; PULSE 104
[2024-10-17 16:23] LABS: BASOPHILS PERCENT AUTO 0.7 % (0.0-1.0); EOSINOPHILS PERCENT AUTO 1.2 % (1.0-3.0); HEMOGLOBIN 12.1 g/dL (12.0-16.0); MEAN CORPUSCULAR HEMOGLOBIN 32.5 pg (27.0-34.0); MEAN CORPUSCULAR HGB CONC 34.6 g/dL (33.0-35.0); MEAN CORPUSCULAR VOLUME 94.1 fL (80-100); MONOCYTES PERCENT AUTO 15.3 % (2-8); NEUTROPHILS PERCENT AUTO 59.8 % (42.2-75.2); PLATELET COUNT,PLT 236 10^3/uL (150-450); RED BLOOD CELL COUNT 3.72 10^6/uL (4.2-5.4); WHITE BLOOD CELL COUNT,WBC 8.4 10^3/uL (5.0-10.0)
[2024-10-17] MEDS: Albuterol/Ipratropium 3.0-0.5 MG/3 ML Neb Soln ONE (16:35)
[2024-10-17] MEDS: Dexamethasone 4 MG/ML SDV ONE (16:35)
[2024-10-17] MEDS: Albuterol 0.083% 2.5 MG/3 ML Neb Soln NEB ONE (16:38)
[2024-10-17] MEDS: Magnesium Sulfate/Water Premix 100 ML ONE (16:39)
[2024-10-17 16:46] LABS: ANION GAP 11.1 mEq/L (7-13); BLOOD UREA NITROGEN,BUN 13 mg/dL (7-18); CALCIUM 9.3 mg/dL (8.5-10.1); CARBON DIOXIDE,CO2 29 mmol/L (21-32); CHLORIDE,CL 94 mmol/L (98-107); CREATININE 0.75 mg/dL (0.55-1.02); EST CRCL DRUG DOSING (CG) 62.85 mL/min; GLUCOSE RANDOM 140 mg/dL (70-99); MAGNESIUM 1.5 mg/dL (1.8-2.4); POTASSIUM,K 3.1 mmol/L (3.5-5.1); SODIUM,NA 131 mmol/L (136-145)
[2024-10-17 16:48] LABS: C-REACTIVE PROTEIN < 0.50 ng/dL (<=0.50); ESTIMATED GFR 87 mL/min (>=60)
[2024-10-17] MEDS ORDERED: Take Home: Albuterol/Ipratropium 3.0-0.5 MG/3 ML Neb Soln, 4 Neb Pack NEB ONE (16:56)
[2024-10-17] MEDS: Potassium Chloride 10 MEQ Tab.ER PO ONE (17:01)
== END 2024-10-17 17:16 | disposition home or self-care (01) ==
LOC: DL.ED 15:58
DX: J44.1 Chronic obstructive pulmonary disease with (acute) exacerbation (principal); I10 Essential (primary) hypertension; E78.00 Pure hypercholesterolemia, unspecified; E66.9 Obesity, unspecified; Z79.899 Other long term (current) drug therapy; Z90.49 Acquired absence of other specified parts of digestive tract; Z68.21 Body mass index [BMI] 21.0-21.9, adult
CPT/HCPCS: 36415; 71045; 80048; 83735; 85025; 86140; 96374; 96375; 99285; A9270; J1100; J3475; 99284; J7613-GY; J7620-GY

== ENCOUNTER 2024-12-25 01:26 | Emergency (ER) | payer MEDICARE ==
[2024-12-25 01:38] VITALS: BP 115/95; PULSE 92
[2024-12-25] MEDS ORDERED: Sodium Chloride 0.9% 10 ML Syringe FLUSH PRN (01:40)
[2024-12-25] MEDS: Albuterol/Ipratropium 3.0-0.5 MG/3 ML Neb Soln NEB PRN (01:56)
[2024-12-25 01:59] LABS: O2 DELIVERY DEVICE ROOM AIR
[2024-12-25 02:01] LABS: BASOPHILS PERCENT AUTO 0.4 % (0.0-1.0); EOSINOPHILS PERCENT AUTO 0.6 % (1.0-3.0); HEMATOCRIT 38.3 % (37.0-47.0); HEMOGLOBIN 13.2 g/dL (12.0-16.0); LYMPHOCYTES PERCENT AUTO 33.2 % (20.5-50.1); MEAN CORPUSCULAR HEMOGLOBIN 31.7 pg (27.0-34.0); MEAN CORPUSCULAR HGB CONC 34.5 g/dL (33.0-35.0); MEAN CORPUSCULAR VOLUME 91.8 fL (80-100); MONOCYTES PERCENT AUTO 9.1 % (2-8); NEUTROPHILS PERCENT AUTO 56.7 % (42.2-75.2); PLATELET COUNT,PLT 222 10^3/uL (150-450); RED BLOOD CELL COUNT 4.17 10^6/uL (4.2-5.4); WHITE BLOOD CELL COUNT,WBC 11.1 10^3/uL (5.0-10.0)
[2024-12-25 02:10] LABS: O2 SATURATION VENOUS 32.2 % (60-80); PCO2 VENOUS 51 mmHg (41-51); PH,VENOUS 7.31 (7.31-7.41); PO2 VENOUS 30 mmHg (35-42)
[2024-12-25 02:11] LABS: BASE EXCESS VENOUS -1.5 mmol/l ((-2)-(+3)); BICARBONATE,VENOUS 25 mmol/l (19-25)
[2024-12-25 02:28] LABS: A/G RATIO 1.2; ALBUMIN 3.8 g/dL (3.4-5.0); ANION GAP 16.7 mEq/L (7-13); BILIRUBIN TOTAL 1.7 mg/dL (0.2-1.0); CALCIUM 9.5 mg/dL (8.5-10.1); CREATININE 0.94 mg/dL (0.55-1.02); EST CRCL DRUG DOSING (CG) 49.9 mL/min; POTASSIUM,K 3.7 mmol/L (3.5-5.1)
[2024-12-25] MEDS: Diltiazem 25 MG/5 ML SDV IVPUSH ONE (02:41)
[2024-12-25] MEDS: Lactated Ringers 1,000 ML IV ONE (02:42)
[2024-12-25] MEDS: Calcium Gluconate 10% 1 GM/10 ML SDV IVPUSH ONE (03:08)
[2024-12-25] MEDS: Magnesium Sulfate/Water Premix 2 GM in Premix Bag 1 BAG IV ONE (03:12)
[2024-12-25] MEDS: Calcium Gluconate 10% 1 GM/10 ML SDV ONE (03:13)
[2024-12-25] MEDS: Magnesium Sulfate/Water Premix 50 ML ONE (03:13)
[2024-12-25 03:16] LABS: LACTIC ACID 4.1 mmol/L (0.4-2.0)
[2024-12-25] MEDS: Diltiazem 125 MG in Sodium Chloride 0.9% 100 ML IV SCH (03:31)
[2024-12-25] MEDS: Enoxaparin 80 MG/0.8 ML Syringe SUBCUT ONE (03:34)
== END 2024-12-25 04:30 ==
LOC: DL.ED 01:26
DX: I48.91 Unspecified atrial fibrillation (principal); I10 Essential (primary) hypertension; F17.210 Nicotine dependence, cigarettes, uncomplicated; E87.20 Acidosis, unspecified; E78.00 Pure hypercholesterolemia, unspecified; J44.9 Chronic obstructive pulmonary disease, unspecified; Z79.899 Other long term (current) drug therapy; Z90.49 Acquired absence of other specified parts of digestive tract
CPT/HCPCS: 36415; 71045; 80053; 82803; 83605; 83880; 84443; 85025; 85379; 87428-QW; 93005; 96365; 96367; 96372; 96375; 96376; 99285-25; J0612; J1650; J3475; J3490; J7120; J7620-GY

== ENCOUNTER 2025-05-25 18:29 | Emergency (ER) | payer MEDICARE ==
[2025-05-25] MEDS ORDERED: Sodium Chloride 0.9% 10 ML Syringe FLUSH PRN (19:01)
[2025-05-25] MEDS: methylPREDNISolone Sodium Succinate 125 MG/2 ML SDV IM ONE (19:12)
[2025-05-25 19:31] LABS: BASOPHILS PERCENT AUTO 0.4 % (0.0-1.0); EOSINOPHILS PERCENT AUTO 0.8 % (1.0-3.0); LYMPHOCYTES PERCENT AUTO 20.8 % (20.5-50.1); MONOCYTES PERCENT AUTO 7.4 % (2-8); NEUTROPHILS PERCENT AUTO 70.6 % (42.2-75.2); PLATELET COUNT,PLT 246 10^3/uL (150-450); RED BLOOD CELL COUNT 3.55 10^6/uL (4.2-5.4); WHITE BLOOD CELL COUNT,WBC 11.2 10^3/uL (5.0-10.0)
[2025-05-25] MEDS ORDERED: Magnesium Sulfate (4.06 MEQ/ML) 1 GM/2 ML SDV IM ONE (19:50)
[2025-05-25 19:53] LABS: BASE EXCESS VENOUS -0.5 mmol/l ((-2)-(+3)); BICARBONATE,VENOUS 25 mmol/l (19-25); O2 DELIVERY DEVICE ROOM AIR; O2 SATURATION VENOUS 64 % (60-80); PCO2 VENOUS 47 mmHg (41-51); PH,VENOUS 7.35 (7.31-7.41); PO2 VENOUS 40 mmHg (35-42)
[2025-05-25 20:00] LABS: A/G RATIO 1.2; ALANINE AMINOTRANSFERASE,ALT 23 U/L (14-59); ASPARTATE AMNIOTRANSFERASE,AST 22 U/L (15-37); BILIRUBIN TOTAL 0.5 mg/dL (0.2-1.0); BLOOD UREA NITROGEN,BUN 9 mg/dL (7-18); CARBON DIOXIDE,CO2 27 mmol/L (21-32); CHLORIDE,CL 99 mmol/L (98-107); CREATININE 0.87 mg/dL (0.55-1.02); EST CRCL DRUG DOSING (CG) 53.92 mL/min; GLUCOSE RANDOM 94 mg/dL (70-99); POTASSIUM,K 3.3 mmol/L (3.5-5.1); PROTEIN TOTAL,TP 7.2 g/dL (6.4-8.2); SODIUM,NA 135 mmol/L (136-145)
[2025-05-25 20:01] LABS: ESTIMATED GFR 73 mL/min (>=60)
[2025-05-25 20:02] LABS: LACTIC ACID 2.4 mmol/L (0.4-2.0)
[2025-05-25] MEDS: Magnesium Sulfate 2 GM/50 mL 2 GM in Premix Bag 1 BAG IV ONE (20:03)
[2025-05-25 20:08] LABS: INR 0.9 (0.9-1.2)
[2025-05-25 20:14] LABS: B-TYPE NATRIURETIC PEPTIDE,BNP 41 pg/ml (0-100)
[2025-05-25 20:18] LABS: D-DIMER QUANTITATIVE 273.0 ng/mL (0-400)
[2025-05-25 20:26] LABS: PTT,PARTIAL THROMBOPLSTIN TIME 25.4 SEC (22.0-34.0)
[2025-05-25] MEDS: Potassium Chloride 10 MEQ Tab.ER PO ONE (21:04)
[2025-05-25 21:33] VITALS: BP 131/85; PULSE 96
[2025-05-25] MEDS: Take Home: predniSONE 20 MG, 4 Tab Pack PO ONE (22:18)
== END 2025-05-25 22:33 | disposition home or self-care (01) ==
LOC: DL.ED 18:29
DX: J44.1 Chronic obstructive pulmonary disease with (acute) exacerbation (principal); E78.00 Pure hypercholesterolemia, unspecified; E66.9 Obesity, unspecified; I10 Essential (primary) hypertension; E83.42 Hypomagnesemia; E87.6 Hypokalemia; Z79.899 Other long term (current) drug therapy; Z90.49 Acquired absence of other specified parts of digestive tract
CPT/HCPCS: 36415; 71045; 80053; 82803; 83605; 83735; 83880; 84145; 84484; 85025; 85379; 85610; 85730; 87040; 87428-QW; 93005; 93010; 94640; 96361; 96365; 96372; 99284; 99285-25; A9270-GY; J2919; J3475; J7030